=== PATIENT | female | born 1955 | race Caucasian/White ===

== ENCOUNTER 2018-02-16 18:19 | Emergency (ER) | payer OTHER ==
[~2018-02-16] VITALS: Ht 152.4 cm; Wt 68.9 kg
[2018-02-16 18:51] VITALS: BP 150/84
--- NOTE | 2018-02-16 19:50 | NUR ---
PT AMB TO BED 3
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
--- NOTE | 2018-02-16 20:57 | NUR ---
Dr. Zuniga evaluating patient at bedside.
--- NOTE | 2018-02-16 21:41 | NUR ---
PT TAKEN TO CT
--- NOTE | 2018-02-16 21:45 | NUR ---
AWAITING DISCHARGE DISPOSITION FROM DR BANG.
--- NOTE | 2018-02-16 21:54 | NUR ---
PT RETURN FROM CT
[2018-02-16 22:12] VITALS: BP 129/68
== END 2018-02-16 22:13 | disposition home or self-care (01) ==
LOC: MED 18:19
DX: S00.83XA Contusion of other part of head, initial encounter (principal); W22.8XXA Striking against or struck by other objects, initial encounter; Y93.89 Activity, other specified; Y92.89 Other specified places as the place of occurrence of the external cause; Y99.8 Other external cause status; I10 Essential (primary) hypertension
CPT/HCPCS: 70450; 99284